=== PATIENT | female | born 1970 | race Caucasian/White ===

== ENCOUNTER 2019-04-08 07:30 | Inpatient (IN) | payer OTHER ==
[2019-04-07 16:07] VITALS: BMI 33.3
[2019-04-08] VITALS (22 sets, daily range): BP systolic 86–119; BP diastolic 48–68; PULSE 58–95; RESP 10–29; Ht 157.5 cm; Wt 79.0 kg
[~2019-04-08] VITALS: Ht 157.5 cm; Wt 79.0 kg
[~2019-04-08 07:30] MED LIST: AMOX500C2 PO; DULO60CA6 PO; GABA300C16 PO
[2019-04-08] MEDS ORDERED: CEFAZOLIN 2 GM/50 ML (PMX) 50 ML IVPB ONE (12:00)
[2019-04-08] MEDS ORDERED: SOD CHLORIDE 0.9% 1,000 ML IV SCH (12:00)
[2019-04-08] MEDS ORDERED: ROPIVACAINE 0.5 % 30 ML VIAL ONE (13:02)
--- NOTE | 2019-04-08 13:19 | PREAC ---
Date/Time of Note Date/Time of Note DATE: 04/08/19 TIME: : Anesthesia Eval and Record Evaluation Time Pre-Procedure Interview DATE: 04/08/19 TIME: : Age 48 Sex female NPO: 8 hrs Preoperative diagnosis incarcerated incisional hernia Planned procedure open component separation with mesh Past Medical History Past Medical History: Includes GI: Obesity (bmi 31.9) Psych: Depression Surgery & Anesthesia Issues No known issue Meds Anticoagulation: No Beta Rosemarie within 24 hr: No Reason Beta Rosemarie not given: Pt. not on B-Rosemarie Reported Medications Amoxicillin* (Amoxicillin*) 500 Mg Cap, 500 MG PO TID, #20 CAP 04/08/19 Gabapentin* (Gabapentin*) 300 Mg Capsule, 600 MG PO QHS, #180 CAP 04/08/19 Gabapentin* (Gabapentin*) 300 Mg Capsule, 300 MG PO AT 1PM, #90 CAP 04/08/19 Gabapentin* (Gabapentin*) 300 Mg Capsule, 600 MG PO QAM, #60 CAP 04/08/19 Duloxetine Hcl* (Cymbalta*) 60 Mg Capsule.dr, 60 MG PO DAILY, CAP 04/08/19 Current Medications Sodium Chloride 1,000 ml @ 75 mls/hr [id number] IV ; Start 04/08/19 at 12:00; Stop 04/09/19 at 01:19 Meds reviewed: Yes Allergies Coded Allergies: No Known Drug Allergy (Verified Allergy, Unknown, 04/08/19) Allergies Reviewed: Yes Labs/Studies Labs Reviewed: Reviewed by anesthesiologist Result Diagram: 04/08/19 1150 04/08/19 1150 Laboratory Tests 04/08/19 11:50 test: Negative Pre-procedure Exam Airway: Adequate mouth opening, Adequate thyromental dist Mallampati: Mallampati II Teeth: Normal Lung: Normal Heart: Normal ASA Physical Status ASA physical status: 2 Emergency: None Planned Anesthetic General/MAC: ETT Nerve block: TAP (bilateral) Planned Pain Management Single shot nerve block, Parenteral pain med, Local by surgeon Pre-operative Attestations Prior to commencing anesthesia and surgery, the patient was re-evaluated, there was verification of: *The patient's identity *The results of appropriate recent lab work and preoperative vital signs *The above evaluation not changing prior to induction *Anesthetic plan, risk benefits, alternative and complications discussed with patient/family; questions answered; patient/family understands, accepts and wishes to proceed. WILMA GUEVARA Apr 08, 2019 13:19
[2019-04-08] MEDS ORDERED: MIDAZOLAM 1 MG/ML 2 ML INJ ONE (13:22)
[2019-04-08] MEDS ORDERED: PROPOFOL 20 ML ONE (13:22)
[2019-04-08] MEDS ORDERED: CEFAZOLIN 1 GM INJ ONE (13:22)
[2019-04-08] MEDS ORDERED: ONDANSETRON 4 MG INJ ONE ×2 (13:23→15:18)
[2019-04-08] MEDS ORDERED: METOCLOPRAMIDE 10 MG INJ ONE (13:23)
[2019-04-08] MEDS ORDERED: HYDROmorphONE 2 MG/ML SYG ONE (13:46)
[2019-04-08] MEDS ORDERED: POLYMYXIN/BACITRACIN 1L IRRIG IRR ONE ×2 (13:49→15:00)
[2019-04-08] MEDS ORDERED: ROCURONIUM 50 MG INJ ONE ×2 (14:04→14:11)
[2019-04-08] MEDS ORDERED: EPHEDrine 25 MG/5 ML SYG ONE (14:04)
[2019-04-08] MEDS ORDERED: BUPIVACAINE 0.5% (SDV) 30 ML INJ ONE (14:56)
[2019-04-08] MEDS ORDERED: KETOROLAC 30 MG INJ ONE (14:57)
[2019-04-08] MEDS ORDERED: CEFAZOLIN 2 GM/50 ML (PMX) 50 ML IVPB SCH (15:00)
--- NOTE | 2019-04-08 15:09 | OPR ---
Date/Time of Note Date/Time of Note DATE: 04/08/19 TIME: 15:00 Operative Report Procedure Date: Apr 08, 2019 Preoperative Diagnosis incarcerated incisional hernia x 2 Postoperative Diagnosis same Operation/Procedure Performed 1. right rectus musculocutaneous flap cpt code 75132 2. left rectus musculocutaneous flap cpt code 63022 3. open incarcerated midepigastric incisional hernia repair 4. open incarcerated umbilical hernia repair 5. implantation of polypropylene 15 x 15 cm mesh cpt code 51751 6. open lysis of adhesions 7. localized adjacent tissue transfer with the use of skin flaps 84 sq cm defect of abdomen Surgeon see signature line [employer] Jagdish Ibarra Anesthesia Type: general Estimated Blood Loss: 50 - 100 ml's Transfusion none Specimen none Grafts/Implants none Complications none Pt Condition Post Procedure: stable Indications This is a 48-year-old female with a history of cholecystitis with gallbladder sepsis. She had a midline laparotomy. This resulted in 2 incarcerated incisional hernias. She is here for component separation with mesh. Risks alternatives benefits and personal were discussed the patient. Patient expressed understanding and consents to the operation. Procedure Description Patient is taken to the OR and prepped and draped in usual sterile fashion. Surgical time was performed. IV antibiotics given. Generous midline incision was made with a 10 blade. Excision of the cicatrix was performed. Dissection with cautery skin onto the fascia. The fascia was opened up. This incision extended superiorly and inferiorly. Upon going superiorly incarcerated incisional hernia was identified. Lysis of adhesions was performed and the hernia contents were manually reduced. Further extension inferiorly showed a umbilical incarcerated hernia. This was also manually reduced. Further lysis of adhesions was performed to allow mobilization of the anterior abdominal wall away from the bowel contents in the omentum as there were many adhesions. The left rectus muscular cutaneous flap was developed by first making a small incision in the posterior rectus sheath. The anterior rectus sheath and posterior rectus sheath was divided by entering the retrorectus potential space. This incision was extended superiorly and inferiorly. Good hemostasis was established. The right rectus muscular cutaneous flap was then developed in a similar fashion by entering the retrorectus space with cautery. This incision was extended superiorly and inferiorly dividing the anterior rectus sheath and entering the retrorectus space. The posterior rectus sheath was closed in a primary fashion with #1 running looped PDS from superior inferior and inferior superior thus closing the mid epigastric and umbilical hernias. 15 x 15 cm polypropylene mesh was then secured in place with interrupted #1 Prolene by fixing it to the anterior rectus sheath in the retrorectus space. Good hemostasis established. The anterior rectus sheath was then closed primarily using #1 loop PDS from superior inferior and inferior superior and tied in the m iddle. Due to the large tissue defect localized adjacent to his transfer with use of skin flaps was performed. Closure was performed with interrupted 3-0 Vicryl and skin gerardo. A tap block was provided the anesthesiologist at the beginning of the case. Subcutaneous therapeutic local anesthesia was also injected throughout the incision site. Dry dressings were applied. Jose Alfredo CHILDRESS Apr 08, 2019 15:09
[2019-04-08] MEDS ORDERED: FENTAnyl 50 MCG/ML VIAL ONE (15:18)
[2019-04-08] MEDS ORDERED: MEPERIDINE 25 MG INJ ONE (15:18)
[2019-04-08] MEDS: FENTAnyl 50 MCG/ML VIAL IV PRN ×2 (15:26→15:57)
[2019-04-08] MEDS ORDERED: FENTAnyl 50 MCG/ML VIAL IV PRN ×2 (15:30)
[2019-04-08] MEDS ORDERED: DIPHENHYDRAMINE 50 MG INJ IV PRN (15:30)
[2019-04-08] MEDS ORDERED: ONDANSETRON 4 MG INJ IV PRN ×2 (15:30→17:00)
[2019-04-08] MEDS ORDERED: MEPERIDINE 25 MG INJ IV PRN (15:30)
[2019-04-08] MEDS ORDERED: HYDROmorphONE 1 MG/5 ML IV SYRINGE IV PRN ×2 (15:30)
[2019-04-08] MEDS ORDERED: EPHEDrine 25 MG/5 ML SYG IV PRN (15:30)
[2019-04-08] MEDS: HYDROmorphONE 1 MG/5 ML IV SYRINGE IV PRN ×2 (15:42→15:47)
--- NOTE | 2019-04-08 16:30 | HP ---
Date/Time of Note Date/Time of Note DATE: 04/08/19 TIME: 16:25 Assessment/Plan VTE Prophylaxis Risk score (from Nsg)>0 risk: 3 SCD applied (from Nsg): Yes Pharmacological prophylaxis: other Lines/Catheters IV Catheter Type (from Nrsg): Peripheral IV Central line still needed: Yes Assessment/Plan Assessment/Plan -Incarcerated incisional hernia x 2, status post incarcerated mid epigastric and umbilical hernias repair by Dr. Cordon. Continue IV fluids and postoperative antibiotics. Continue Sidney and morphine as needed for pain and Zofran for nausea. Advance diet per surgery. -History of fibromyalgia. Continue gabapentin. Further recommendations based on clinical course. Plan of care discussed with Dr. White. Result Diagram: 04/08/19 1522 04/08/19 1522 Results 24hrs Laboratory Tests Test 04/08/19 11:50 04/08/19 15:22 White Blood Count 7.7 10.9 #H Red Blood Count 3.84 L 3.82 L Hemoglobin 12.5 12.4 Hematocrit 36.9 L 37.9 Mean Corpuscular Volume 96.1 99.2 Mean Corpuscular Hemoglobin 32.6 32.5 Mean Corpuscular Hemoglobin Concent 33.9 32.7 Red Cell Distribution Width 14.0 14.0 Platelet Count 273 269 Mean Platelet Volume 9.1 9.2 Immature Granulocytes % 0.300 0.300 Neutrophils % 58.3 63.0 Lymphocytes % 34.9 30.6 Monocytes % 5.2 5.1 Eosinophils % 1.0 0.8 Basophils % 0.3 0.2 Nucleated Red Blood Cells % 0.0 0.0 Immature Granulocytes # 0.020 0.030 Neutrophils # 4.5 6.9 Lymphocytes # 2.7 3.3 H Monocytes # 0.4 0.6 Eosinophils # 0.1 0.1 Basophils # 0.0 0.0 Nucleated Red Blood Cells # 0.0 0.0 Prothrombin Time 12.5 Prothrombin Time Ratio 1.0 INR International Normalized Ratio 0.92 Activated Partial Thromboplast Time 27.2 Sodium Level 140 142 Potassium Level 4.0 3.8 Chloride Level 107 110 Carbon Dioxide Level 26 24 Anion Gap 7 8 Blood Urea Nitrogen 13 12 Creatinine 0.61 0.60 Est Glomerular Filtrat Rate mL/min > 60 > 60 Glucose Level 101 114 Calcium Level 9.2 8.3 L Total Bilirubin 1.2 0.8 Direct Bilirubin 0.00 0.00 Indirect Bilirubin 1.2 H 0.8 Aspartate Amino Transf (AST/SGOT) 25 24 Alanine Aminotransferase (ALT/SGPT) 27 26 Alkaline Phosphatase 55 53 Total Protein 8.0 7.4 Albumin 4.0 3.6 Globulin 4.00 H 3.80 H Albumin/Globulin Ratio 1.00 0.94 HPI/ROS Admit Date/Time Admit Date/Time Apr 08, 2019 at 10:07 Hx of Present Illness Patient is 48-year-old female who underwent open cholecystectomy and appendectomy in 2017. Patient developed incisional hernias and was seen by Dr. Cordon in general surgery consultation. Patient was brought to the hospital and underwent component separation with mesh performed incarcerated mid epigastric and umbilical hernias. Postoperatively patient experiencing significant pain and patient will be admitted for further evaluation and management to medical surgical floor. ROS 12 point review of system is negative except what mentioned in HPI PMH/Family/Social Past Medical History Medical History: other (Fibromyalgia) Medications Current Medications Sodium Chloride 1,000 ml @ 75 mls/hr [id number] IV Last administered on 04/08/19at 15:29; Admin Dose 75 MLS/HR; Start 04/08/19 at 12:00; Stop 04/09/19 at 01:19 Cefazolin Sodium/ Dextrose 50 ml @ 100 mls/hr Q8H IVPB ; Start 04/08/19 at 15:00; Stop 04/09/19 at 14:59 Lactated Ringer's 1,000 ml @ 100 mls/hr Q10H IV ; Start 04/08/19 at 14:59 Hydromorphone HCl (Dilaudid) 0.2 mg PACU PRN IV MILD PAIN 1-3 Last administered on 04/08/19at 16:14; Admin Dose 0.2 MG; Start 04/08/19 at 15:30; Stop 04/08/19 at 20:00 Hydromorphone HCl (Dilaudid) 0.4 mg PACU PRN IV MOD PAIN 4-6 Last administered on 04/08/19at 15:47; Admin Dose 0.4 MG; Start 04/08/19 at 15:30; Stop 04/08/19 at 20:00 Hydromorphone HCl (Dilaudid) 0.6 mg PACU PRN IV SEVERE PAIN 7-10; Start 04/08/19 at 15:30; Stop 04/08/19 at 20:00 Fentanyl (Sublimaze) 25 mcg PACU ORDER PRN IV MILD PAIN 1-3; Start 04/08/19 at 1 5:30; Stop 04/08/19 at 20:00 Fentanyl (Sublimaze) 50 mcg PACU ORDER PRN IV MOD PAIN 4-6 Last administered on 04/08/19at 16:13; Admin Dose 50 MCG; Start 04/08/19 at 15:30; Stop 04/08/19 at 20:00 Fentanyl (Sublimaze) 75 mcg PACU ORDER PRN IV SEVERE PAIN 7-10 Last administered on 04/08/19at 15:57; Admin Dose 75 MCG; Start 04/08/19 at 15:30; Stop 04/08/19 at 20:00 Ondansetron HCl (Zofran Inj) 4 mg PACU ORDER PRN IV NAUSEA/VOMITING Last administered on 04/08/19at 15:26; Admin Dose 4 MG; Start 04/08/19 at 15:30; Stop 04/08/19 at 20:00 Ephedrine Sulfate 5 mg PACU ORDER PRN IV BLOOD PRESSURE SUPPORT; Start 04/08/19 at 15:30; Stop 04/08/19 at 20:00 Meperidine HCl (Demerol) 25 mg PACU ORDER PRN IV .RIGORS Last administered on 04/08/19at 15:26; Admin Dose 25 MG; Start 04/08/19 at 15:30; Stop 04/08/19 at 20:00 Diphenhydramine HCl (Benadryl) 25 mg PACU ORDER PRN IV .PRURITUS; Start 04/08/19 at 15:30; Stop 04/08/19 at 20:00 Coded Allergies: No Known Drug Allergy (Verified Allergy, Unknown, 04/21/19) Past Surgical History Past Surgical Hx: appendectomy, other (Open cholecystectomy) Family History Significant Family History: no pertinent family hx Social History Alcohol Use: none Smoking Status: Former smoker Drug Use: none Exam/Review of Systems Vital Signs Vitals Vital Signs Date Temp Pulse Resp B/P (MAP) Pulse Ox O2 O2 Flow FiO2 Time Delivery Rate 04/08/19 68 16 107/57 96 Room Air 15:38 (74) 04/08/19 8.0 15:33 04/08/19 98.9 15:13 Exam Constitutional: alert, oriented Head: normocephalic Neck: supple Respiratory: clear to auscultation Cardiovascular: nl pulses Gastrointestinal: soft, other (Status post surgery) Musculoskeletal: nl extremities to inspection Extremities: normal pulses Neurological: nl mental status Skin: nl LAUREL Velasquez Apr 08, 2019 16:30
[2019-04-08] MEDS ORDERED: DOCUSATE SODIUM 100 MG CAP PO SCH (17:00)
[2019-04-08] MEDS ORDERED: morphine 2 MG INJ IV PRN (17:00)
[2019-04-08] MEDS ORDERED: ACETAMINOPHEN 325 MG TAB PO PRN (17:00)
[2019-04-08] MEDS: LACTATED RINGER'S 1,000 ML IV SCH (17:22)
[2019-04-08] MEDS: HYDROCODONE/APAP (5/325) TAB PO PRN (18:20)
[2019-04-08] MEDS: GABAPENTIN 300 MG CAP PO SCH (20:57)
[2019-04-08] MEDS: DOCUSATE SODIUM 100 MG CAP PO SCH (20:58)
[2019-04-08] MEDS: morphine 4 MG/ML VIAL IV PRN (21:03)
[2019-04-08] MEDS: DULOXETINE 30 MG CAP DR PO SCH (21:06)
[2019-04-08] MEDS: CEFAZOLIN 2 GM/50 ML (PMX) 50 ML IVPB SCH (21:12)
[2019-04-09] MEDS: morphine 4 MG/ML VIAL IV PRN ×3 (00:19→06:32)
[2019-04-09] MEDS: LACTATED RINGER'S 1,000 ML IV SCH ×3 (00:59→17:26)
[2019-04-09] MEDS: HYDROCODONE/APAP (5/325) TAB PO PRN ×2 (01:11→07:35)
[2019-04-09 01:17] VITALS: BP 94/51; PULSE 80; RESP 16
[2019-04-09 02:00] VITALS: BP 105/55; PULSE 80
[2019-04-09] MEDS: CEFAZOLIN 2 GM/50 ML (PMX) 50 ML IVPB SCH ×2 (04:31→13:09)
[2019-04-09 07:28] VITALS: BP 119/64; PULSE 95; RESP 19
--- NOTE | 2019-04-09 08:29 | PAC ---
Date/Time of Note Date/Time of Note DATE: 04/09/19 TIME: 08:28 Post-Anesthesia Notes Post-Anesthesia Note Last documented vital signs Vital Signs Date Temp Pulse Resp B/P (MAP) Pulse Ox O2 O2 Flow FiO2 Time Delivery Rate 04/09/19 98.4 95 19 119/64 92 Room Air 07:28 (82) 04/08/19 2.0 18:00 Activity: WNL Respiratory function: WNL Cardiovascular function: WNL Mental status: Baseline Pain reasonably controlled: Yes Hydration appropriate: Yes Nausea/Vomiting absent: No LOLITA SABILLON MD Apr 09, 2019 08:29
[2019-04-09] MEDS ORDERED: DULOXETINE 30 MG CAP DR PO SCH (09:00)
[2019-04-09] MEDS: KETOROLAC 30 MG INJ IV PRN ×2 (09:53→15:31)
[2019-04-09] MEDS: GABAPENTIN 300 MG CAP PO SCH ×3 (09:54→20:19)
[2019-04-09] MEDS: DOCUSATE SODIUM 100 MG CAP PO SCH ×2 (09:55→20:19)
[2019-04-09 10:32] VITALS: BP 109/57; PULSE 92; RESP 18
--- NOTE | 2019-04-09 12:12 | PN ---
Date/Time of Note Date/Time of Note DATE: 04/09/19 TIME: 12:08 Assessment/Plan VTE Prophylaxis Risk score (from Ns)>0 risk: 2 SCD applied (from [facility]): Yes SCD contraindicated: other Pharmacological prophylaxis: other Pharm contraindication: other Lines/Catheters IV Catheter Type (from Nrsg): Peripheral IV Urinary Cath still in place: No Assessment/Plan Assessment/Plan -Incarcerated incisional hernia x 2, status post incarcerated mid epigastric and umbilical hernias repair by Dr. Cordon. Continue IV fluids and postoperative antibiotics. Continue Remer and morphine as needed for pain and Zofran for nausea. Advance diet per surgery. -History of fibromyalgia. Continue gabapentin. - Anemia- Hgb 10.9. stable ; cont to monitor CBC Further recommendations based on clinical course. Plan of care discussed with Dr. White. Result Diagram: 04/09/198 04/09/19 0428 Results 24hrs Laboratory Tests Test 04/08/19 15:22 04/09/19 04:28 White Blood Count 10.9 #H 8.1 # Red Blood Count 3.82 L 3.41 L Hemoglobin 12.4 10.9 L Hematocrit 37.9 33.9 L Mean Corpuscular Volume 99.2 99.4 Mean Corpuscular Hemoglobin 32.5 32.0 Mean Corpuscular Hemoglobin Concent 32.7 32.2 Red Cell Distribution Width 14.0 14.2 Platelet Count 269 272 Mean Platelet Volume 9.2 9.6 Immature Granulocytes % 0.300 0.200 Neutrophils % 63.0 61.4 Lymphocytes % 30.6 30.5 Monocytes % 5.1 6.9 Eosinophils % 0.8 0.9 Basophils % 0.2 0.1 Nucleated Red Blood Cells % 0.0 0.0 Immature Granulocytes # 0.030 0.020 Neutrophils # 6.9 5.0 Lymphocytes # 3.3 H 2.5 Monocytes # 0.6 0.6 Eosinophils # 0.1 0.1 Basophils # 0.0 0.0 Nucleated Red Blood Cells # 0.0 0.0 Sodium Level 142 140 Potassium Level 3.8 4.0 Chloride Level 110 106 Carbon Dioxide Level 24 27 Anion Gap 8 7 Blood Urea Nitrogen 12 12 Creatinine 0.60 0.61 Est Glomerular Filtrat Rate mL/min > 60 > 60 Glucose Level 114 106 Calcium Level 8.3 L 8.2 L Total Bilirubin 0.8 1.4 H Direct Bilirubin 0.00 0.00 Indirect Bilirubin 0.8 1.4 H Aspartate Amino Transf (AST/SGOT) 24 28 Alanine Aminotransferase (ALT/SGPT) 26 27 Alkaline Phosphatase 53 45 Total Protein 7.4 6.8 Albumin 3.6 3.4 Globulin 3.80 H 3.40 H Albumin/Globulin Ratio 0.94 1.00 Subjective 24 Hr Interval Summary Free Text/Dictation c/o abdominal pain; staff called Dr White- patient got pain medicine; resting parminder; feels better will cont to monitor Constitutional: requiring IVF Eyes: no complaints ENT: no complaints Respiratory: no complaints Cardiovascular: no complaints Gastrointestinal: pain Genitourinary: no complaints Musculoskeletal: no complaints Skin: no complaints Neurologic: no complaints Endocrine: no complaints Psychological: nl mood/affect Immunologic: no complaints Exam/Review of Systems Exam Vitals Vital Signs Date Temp Pulse Resp B/P (MAP) Pulse Ox O2 O2 Flow FiO2 Time Delivery Rate 04/09/19 99.1 92 18 109/57 93 Room Air 10:32 (74) 04/08/19 2.0 18:00 Intake and Output 04/08/19 04/08/19 04/09/19 1515:00 23:00 07:00 IntakeIntake Total 2730 ml 1890 ml OutputOutput Total 50 ml 251 ml BalanceBalance 2680 ml 1639 ml Constitutional: alert, well developed Psych: nl mood/affect Eyes: nl lids, nl sclera ENMT: nl external ears & nose Neck: non-tender Respiratory: clear to auscultation Cardiovascular: nl pulses, other (s1s2) Gastrointestinal: soft, non-tender, other (surgical abdomen-) Musculoskeletal: nl extremities to inspection Extremities: normal pulses Neurological: nl speech, other (alert/ responsive) Lymph: nontender Results Results 24hrs Laboratory Tests Test 04/08/19 15:22 04/09/19 04:28 White Blood Count 10.9 #H 8.1 # Red Blood Count 3.82 L 3.41 L Hemoglobin 12.4 10.9 L Hematocrit 37.9 33.9 L Mean Corpuscular Volume 99.2 99.4 Mean Corpuscular Hemoglobin 32.5 32.0 Mean Corpuscular Hemoglobin Concent 32.7 32.2 Red Cell Distribution Width 14.0 14.2 Platelet Count 269 272 Mean Platelet Volume 9.2 9.6 Immature Granulocytes % 0.300 0.200 Neutrophils % 63.0 61.4 Lymphocytes % 30.6 30.5 Monocytes % 5.1 6.9 Eosinophils % 0.8 0.9 Basophils % 0.2 0.1 Nucleated Red Blood Cells % 0.0 0.0 Immature Granulocytes # 0.030 0.020 Neutrophils # 6.9 5.0 Lymphocytes # 3.3 H 2.5 Monocytes # 0.6 0.6 Eosinophils # 0.1 0.1 Basophils # 0.0 0.0 Nucleated Red Blood Cells # 0.0 0.0 Sodium Level 142 140 Potassium Level 3.8 4.0 Chloride Level 110 106 Carbon Dioxide Level 24 27 Anion Gap 8 7 Blood Urea Nitrogen 12 12 Creatinine 0.60 0.61 Est Glomerular Filtrat Rate mL/min > 60 > 60 Glucose Level 114 106 Calcium Level 8.3 L 8.2 L Total Bilirubin 0.8 1.4 H Direct Bilirubin 0.00 0.00 Indirect Bilirubin 0.8 1.4 H Aspartate Amino Transf (AST/SGOT) 24 28 Alanine Aminotransferase (ALT/SGPT) 26 27 Alkaline Phosphatase 53 45 Total Protein 7.4 6.8 Albumin 3.6 3.4 Globulin 3.80 H 3.40 H Albumin/Globulin Ratio 0.94 1.00 Medications Medication Current Medications Lactated Ringer's 1,000 ml @ 100 mls/hr Q10H IV Last administered on 04/09/19at 03:03; Admin Dose 100 MLS/HR; Start 04/08/19 at 14:59 Gabapentin (Neurontin) 300 mg DAILY@1300 PO ; Start 04/09/19 at 13:00 Gabapentin (Neurontin) 600 mg QAM PO Last administered on 04/09/19at 09:54; Admin Dose 600 MG; Start 04/09/19 at 09:00 Gabapentin (Neurontin) 600 mg QHS PO Last administered on 04/08/19at 20:57; Adm in Dose 600 MG; Start 04/08/19 at 21:00 Acetaminophen (Tylenol Tab) 650 mg Q6H PRN PO .PAIN 1-3 OR TEMP Last administered on 04/09/19at 03:02; Admin Dose 650 MG; Start 04/08/19 at 17:00 Acetaminophen/ Hydrocodone Bitart ([place] (5/325)) 1 tab Q6H PRN PO .MOD PAIN 4- 6 Last administered on 04/09/19 07:35; Admin Dose 1 TAB; Start 04/08/19 at 17:00 Cefazolin Sodium/ Dextrose 50 ml @ 100 mls/hr Q8H IVPB Last administered on 04/09/19 04:31; Admin Dose 100 MLS/HR; Start 04/08/19 at 21:00; Stop 04/09/19 at 13:29 Ondansetron HCl (Zofran Inj) 4 mg Q4H PRN IV NAUSEA AND/OR VOMITING Last administered on 04/09/19 09:24; Admin Dose 4 MG; Start 04/08/19 at 17:00 Docusate Sodium (Colace) 100 mg Q12H PO Last administered on 04/09/19 09:55; Admin Dose 100 MG; Start 04/08/19 at 21:00 Duloxetine HCl (Cymbalta) 60 mg HS PO Last administered on 04/08/19 21:06; Admin Dose 60 MG; Start 04/08/19 at 21:00 Morphine Sulfate (morphine) 4 mg Q3H PRN IV SEVERE PAIN LEVEL 7-10 Last administered on 04/09/19 06:32; Admin Dose 4 MG; Start 04/08/19 at 20:30 Ketorolac Tromethamine (Toradol) 30 mg Q6H PRN IV PAIN LEVEL 1-3 OR MIGRAINE Last administered on 04/09/19 09:53; Admin Dose 30 MG; Start 04/09/19 at 09:30; Stop 04/12/19 at 09:29 RAMON TREJO Apr 09, 2019 12:12
--- NOTE | 2019-04-09 12:28 | PN ---
Date/Time of Note Date/Time of Note DATE: 04/09/19 TIME: 12:27 Assessment/Plan VTE Prophylaxis Risk score (from Ns)>0 risk: 2 SCD applied (from Ns): Yes Pharmacological prophylaxis: other Lines/Catheters IV Catheter Type (from Nrsg): Peripheral IV Urinary Cath still in place: No Assessment/Plan Assessment/Plan s/p open component separation with mesh change pain meds to dilaudid and possible dc tomorrow Result Diagram: 04/09/198 04/09/19427 Results 24hrs Laboratory Tests Test 04/08/19 15:22 04/09/19 04:28 White Blood Count 10.9 #H 8.1 # Red Blood Count 3.82 L 3.41 L Hemoglobin 12.4 10.9 L Hematocrit 37.9 33.9 L Mean Corpuscular Volume 99.2 99.4 Mean Corpuscular Hemoglobin 32.5 32.0 Mean Corpuscular Hemoglobin Concent 32.7 32.2 Red Cell Distribution Width 14.0 14.2 Platelet Count 269 272 Mean Platelet Volume 9.2 9.6 Immature Granulocytes % 0.300 0.200 Neutrophils % 63.0 61.4 Lymphocytes % 30.6 30.5 Monocytes % 5.1 6.9 Eosinophils % 0.8 0.9 Basophils % 0.2 0.1 Nucleated Red Blood Cells % 0.0 0.0 Immature Granulocytes # 0.030 0.020 Neutrophils # 6.9 5.0 Lymphocytes # 3.3 H 2.5 Monocytes # 0.6 0.6 Eosinophils # 0.1 0.1 Basophils # 0.0 0.0 Nucleated Red Blood Cells # 0.0 0.0 Sodium Level 142 140 Potassium Level 3.8 4.0 Chloride Level 110 106 Carbon Dioxide Level 24 27 Anion Gap 8 7 Blood Urea Nitrogen 12 12 Creatinine 0.60 0.61 Est Glomerular Filtrat Rate mL/min > 60 > 60 Glucose Level 114 106 Calcium Level 8.3 L 8.2 L Total Bilirubin 0.8 1.4 H Direct Bilirubin 0.00 0.00 Indirect Bilirubin 0.8 1.4 H Aspartate Amino Transf (AST/SGOT) 24 28 Alanine Aminotransferase (ALT/SGPT) 26 27 Alkaline Phosphatase 53 45 Total Protein 7.4 6.8 Albumin 3.6 3.4 Globulin 3.80 H 3.40 H Albumin/Globulin Ratio 0.94 1.00 Subjective 24 Hr Interval Summary Free Text/Dictation patient with significant pain and states morphine isn't controlling her pain Exam/Review of Systems Exam Vitals Vital Signs Date Temp Pulse Resp B/P (MAP) Pulse Ox O2 O2 Flow FiO2 Time Delivery Rate 04/09/19 99.1 92 18 109/57 93 Room Air 10:32 (74) 04/08/19 2.0 18:00 Intake and Output 04/08/19 04/08/19 04/09/19 1515:00 23:00 07:00 IntakeIntake Total 2730 ml 1890 ml OutputOutput Total 50 ml 251 ml BalanceBalance 2680 ml 1639 ml Exam c/d/i Results Results 24hrs Laboratory Tests Test 04/08/19 15:22 04/09/19 04:28 White Blood Count 10.9 #H 8.1 # Red Blood Count 3.82 L 3.41 L Hemoglobin 12.4 10.9 L Hematocrit 37.9 33.9 L Mean Corpuscular Volume 99.2 99.4 Mean Corpuscular Hemoglobin 32.5 32.0 Mean Corpuscular Hemoglobin Concent 32.7 32.2 Red Cell Distribution Width 14.0 14.2 Platelet Count 269 272 Mean Platelet Volume 9.2 9.6 Immature Granulocytes % 0.300 0.200 Neutrophils % 63.0 61.4 Lymphocytes % 30.6 30.5 Monocytes % 5.1 6.9 Eosinophils % 0.8 0.9 Basophils % 0.2 0.1 Nucleated Red Blood Cells % 0.0 0.0 Immature Granulocytes # 0.030 0.020 Neutrophils # 6.9 5.0 Lymphocytes # 3.3 H 2.5 Monocytes # 0.6 0.6 Eosinophils # 0.1 0.1 Basophils # 0.0 0.0 Nucleated Red Blood Cells # 0.0 0.0 Sodium Level 142 140 Potassium Level 3.8 4.0 Chloride Level 110 106 Carbon Dioxide Level 24 27 Anion Gap 8 7 Blood Urea Nitrogen 12 12 Creatinine 0.60 0.61 Est Glomerular Filtrat Rate mL/min > 60 > 60 Glucose Level 114 106 Calcium Level 8.3 L 8.2 L Total Bilirubin 0.8 1.4 H Direct Bilirubin 0.00 0.00 Indirect Bilirubin 0.8 1.4 H Aspartate Amino Transf (AST/SGOT) 24 28 Alanine Aminotransferase (ALT/SGPT) 26 27 Alkaline Phosphatase 53 45 Total Protein 7.4 6.8 Albumin 3.6 3.4 Globulin 3.80 H 3.40 H Albumin/Globulin Ratio 0.94 1.00 Medications Medication Current Medications Lactated Ringer's 1,000 ml @ 100 mls/hr Q10H IV Last administered on 04/09/19 03:03; Admin Dose 100 MLS/HR; Start 04/08/19 at 14:59 Gabapentin (Neurontin) 300 mg DAILY@1300 PO ; Start 04/09/19 at 13:00 Gabapentin (Neurontin) 600 mg QAM PO Last administered on 04/09/19 09:54; Admin Dose 600 MG; Start 04/09/19 at 09:00 Gabapentin (Neurontin) 600 mg QHS PO Last administered on 04/08/19 20:57; Admin Dose 600 MG; Start 04/08/19 at 21:00 Acetaminophen (Tylenol Tab) 650 mg Q6H PRN PO .PAIN 1-3 OR TEMP Last administered on 04/09/19 03:02; Admin Dose 650 MG; Start 04/08/19 at 17:00 Acetaminophen/ Hydrocodone Bitart ([place] (5/325)) 1 tab Q6H PRN PO .MOD PAIN 4- 6 Last administered on 04/09/19 07:35; Admin Dose 1 TAB; Start 04/08/19 at 17:00 Cefazolin Sodium/ Dextrose 50 ml @ 100 mls/hr Q8H IVPB Last administered on 04/09/19 04:31; Admin Dose 100 MLS/HR; Start 04/08/19 at 21:00; Stop 04/09/19 at 13:29 Ondansetron HCl (Zofran Inj) 4 mg Q4H PRN IV NAUSEA AND/OR VOMITING Last administered on 04/09/19 09:24; Admin Dose 4 MG; Start 04/08/19 at 17:00 Docusate Sodium (Colace) 100 mg Q12H PO Last administered on 04/09/19 09:55; Admin Dose 100 MG; Start 04/08/19 at 21:00 Duloxetine HCl (Cymbalta) 60 mg HS PO Last administered on 04/08/19 21:06; Admin Dose 60 MG; Start 04/08/19 at 21:00 Morphine Sulfate (morphine) 4 mg Q3H PRN IV SEVERE PAIN LEVEL 7-10 Last administered on 04/09/19at 06:32; Admin Dose 4 MG; Start 04/08/19 at 20:30 Ketorolac Tromethamine (Toradol) 30 mg Q6H PRN IV PAIN LEVEL 1-3 OR MIGRAINE Last administered on 04/09/19at 09:53; Admin Dose 30 MG; Start 04/09/19 at 09:30; Stop 04/12/19 at 09:29 Jose Alfredo CHILDRESS Apr 09, 2019 12:28
[2019-04-09] MEDS: HYDROmorphONE 0.5 MG/0.5 ML SYG IV PRN ×3 (13:10→21:12)
[2019-04-09 16:24] VITALS: BP 119/58; PULSE 81; RESP 19
[2019-04-09 19:40] VITALS: BP 118/60; PULSE 93; RESP 20
[2019-04-09] MEDS: DULOXETINE 30 MG CAP DR PO SCH (20:19)
[2019-04-10] MEDS: KETOROLAC 30 MG INJ IV PRN ×3 (01:15→16:52)
[2019-04-10 02:15] VITALS: BP 119/65; PULSE 96; RESP 18
[2019-04-10] MEDS: LACTATED RINGER'S 1,000 ML IV SCH ×3 (03:42→22:31)
[2019-04-10] MEDS: HYDROmorphONE 0.5 MG/0.5 ML SYG IV PRN ×5 (04:15→21:31)
[2019-04-10 07:23] VITALS: BP 120/75; PULSE 98; RESP 18
[2019-04-10] MEDS: GABAPENTIN 300 MG CAP PO SCH ×3 (08:29→21:13)
[2019-04-10] MEDS: DOCUSATE SODIUM 100 MG CAP PO SCH ×2 (08:29→21:13)
--- NOTE | 2019-04-10 12:16 | PN ---
Date/Time of Note Date/Time of Note DATE: 04/10/19 TIME: 12:16 Assessment/Plan VTE Prophylaxis Risk score (from Nsg)>0 risk: 5 SCD applied (from Nsg): Yes Pharmacological prophylaxis: LMWH Lines/Catheters IV Catheter Type (from Nrsg): Peripheral IV Urinary Cath still in place: No Assessment/Plan Hospital Course -Incarcerated incisional hernia x 2, status post incarcerated mid epigastric and umbilical hernias repair by Dr. Cordon. Continue IV fluids and postoperative antibiotics. Continue [place] and morphine as needed for pain and Zofran for nausea. Advance diet per surgery. -History of fibromyalgia. Continue gabapentin. - Anemia- Hgb 10.9. stable ; cont to monitor CBC Result Diagram: 04/09/1942704/09/19427 Subjective 24 Hr Interval Summary Free Text/Dictation Patient still having a fair amount of pain related to hernia repair surgery Exam/Review of Systems Exam Vitals Vital Signs Date Temp Pulse Resp B/P (MAP) Pulse Ox O2 O2 Flow FiO2 Time Delivery Rate 04/10/19 98.8 98 18 120/75 94 Room Air 07:23 (90) 04/08/19 2.0 18:00 Intake and Output 04/09/19 04/09/19 04/10/19 1515:00 23:00 07:00 IntakeIntake Total 500 ml 1300 ml 1610 ml OutputOutput Total 2 ml 1 ml BalanceBalance 498 ml 1299 ml 1610 ml Constitutional: well developed Head: normocephalic, atraumatic Neck: supple Respiratory: clear to auscultation Cardiovascular: regular rate and rhythm Gastrointestinal: soft, non-tender Extremities: normal pulses Medications Medication Current Medications Lactated Ringer's 1,000 ml @ 100 mls/hr Q10H IV Last administered on 04/10/19at 03:42; Admin Dose 100 MLS/HR; Start 04/08/19 at 14:59 Gabapentin (Neurontin) 300 mg DAILY@1300 PO Last administered on 04/09/19at 13:09; Admin Dose 300 MG; Start 04/09/19 at 13:00 Gabapentin (Neurontin) 600 mg QAM PO Last administered on 04/10/19at 08:29; Admin Dose 600 MG; Start 04/09/19 at 09:00 Gabapentin (Neurontin) 600 mg QHS PO Last administered on 04/09/19 20:19; Admin Dose 600 MG; Start 04/08/19 at 21:00 Acetaminophen (Tylenol Tab) 650 mg Q6H PRN PO .PAIN 1-3 OR TEMP Last administered on 04/09/19 03:02; Admin Dose 650 MG; Start 04/08/19 at 17:00 Acetaminophen/ Hydrocodone Bitart ([place] (5/325)) 1 tab Q6H PRN PO .MOD PAIN 4- 6 Last administered on 04/09/19 07:35; Admin Dose 1 TAB; Start 04/08/19 at 17:00 Ondansetron HCl (Zofran Inj) 4 mg Q4H PRN IV NAUSEA AND/OR VOMITING Last administered on 04/09/19 09:24; Admin Dose 4 MG; Start 04/08/19 at 17:00 Docusate Sodium (Colace) 100 mg Q12H PO Last administered on 04/10/19 08:29; Admin Dose 100 MG; Start 04/08/19 at 21:00 Duloxetine HCl (Cymbalta) 60 mg HS PO Last administered on 04/09/19 20:19; Admin Dose 60 MG; Start 04/08/19 at 21:00 Ketorolac Tromethamine (Toradol) 30 mg Q6H PRN IV PAIN LEVEL 1-3 OR MIGRAINE Last administered on 04/10/19 08:29; Admin Dose 30 MG; Start 04/09/19 at 09:30; Stop 04/12/19 at 09:29 Hydromorphone HCl (Dilaudid) 0.5 mg Q3H PRN IV SEVERE PAIN LEVEL 7-10 Last administered on 04/10/19 09:42; Admin Dose 0.5 MG; Start 04/09/19 at 12:30 LEYLA CANCINO Apr 10, 2019 12:16
[2019-04-10 15:48] VITALS: BP 122/67; PULSE 96; RESP 18
--- NOTE | 2019-04-10 15:57 | PN ---
DATE: 04/10/2019 Status post laparotomy, open component separation for the repair of the incarcerated ventral incision al hernia. SUBJECTIVE: The patient still is having a lot of pain, requiring Dilaudid and also Toradol. She can not take morphine anymore. I guess she has developed some REACTION TO MORPHINE. Has passed a little bit of gas. No bowel movement. Feels somewhat nauseous. OBJECTIVE: GENERAL: Alert, awake oriented. VITAL SIGNS: Temperature 99, heart rate 96, respiration 18, blood pressure 109/65, saturation 93% on room air. HEART: Regular. LUNGS: Decreased breathing sound at bases. ABDOMEN: Distended, protruded, was relatively soft. Dressing is intact. Bowel sound is 2+/4+. EXTREMITIES: Lower extremity, no calf tenderness. No pitting edema. LABORATORY DATA: There is no lab done today. ASSESSMENT: The patient is postop day #2 status post open repair of the incarcerated ventral incisio nal hernia with component separation. The patient is relatively stable, but still has some nausea an d requires a lot of pain medication for control of the pain. Bowel sounds present. PLAN: We will keep the patient at least 1 more night. If by tomorrow has a bowel movement and can e at better and the pain is under better control, we can discharge the patient tomorrow. Dictated By: RAGHU WILSON MD PS/NTS Conf#: [id number] DID#: [id number] CC: YOGESH CHILDRESS MD;*EndCC*
[2019-04-10 20:41] VITALS: BP 116/59; PULSE 92; RESP 18
[2019-04-10] MEDS: DULOXETINE 30 MG CAP DR PO SCH (21:13)
[2019-04-10] MEDS: HYDROCODONE/APAP (5/325) TAB PO PRN (22:28)
[2019-04-11 02:30] VITALS: BP_SYST 122; BP_SYST 124; BP_DIAS 68; PULSE 80; RESP 19
[2019-04-11] MEDS: HYDROCODONE/APAP (5/325) TAB PO PRN ×2 (05:20→11:39)
[2019-04-11] MEDS: KETOROLAC 30 MG INJ IV PRN (06:18)
[2019-04-11] MEDS: LACTATED RINGER'S 1,000 ML IV SCH (07:24)
[2019-04-11 07:42] VITALS: BP 118/66; PULSE 88; RESP 16
[2019-04-11] MEDS: GABAPENTIN 300 MG CAP PO SCH ×2 (09:00→12:02)
[2019-04-11] MEDS: HYDROmorphONE 0.5 MG/0.5 ML SYG IV PRN (09:00)
[2019-04-11] MEDS: DOCUSATE SODIUM 100 MG CAP PO SCH (09:00)
--- NOTE | 2019-04-11 12:14 | DS ---
Date/Time of Note Date/Time of Note DATE: 04/11/19 TIME: 12:13 Discharge Summary Admission/Discharge Info Admit Date/Time Apr 08, 2019 at 10:07 Discharge Date/Time 04/11/19 Discharge Diagnosis -Incarcerated incisional hernia x 2, status post incarcerated mid epigastric and umbilical hernias repair by Dr. Cordon. Continue IV fluids and postoperative antibiotics. Continue [place] and morphine as needed for pain and Zofran for nausea. Advance diet per surgery. -History of fibromyalgia. Continue gabapentin. - Anemia- Hgb 10.9. stable ; cont to monitor CBC Patient Condition: Fair Consults surgery Procedures repair of incarcerated incisional hernia Hx of Present Illness Patient comes in with incarcerated incisional hernia x2 causing abdominal pain. Hospital Course Patient comes in with incarcerated incisional hernia x2 causing abdominal pain. Patient underwent repair and tolerated the procedure. She was subsequently discharged when she was felt to be stable s/p procedure. -Incarcerated incisional hernia x 2, status post incarcerated mid epigastric and umbilical hernias repair by Dr. Cordon. Continue IV fluids and postoperative antibiotics. Continue [place] and morphine as needed for pain and Zofran for nausea. Advance diet per surgery. -History of fibromyalgia. Continue gabapentin. - Anemia- Hgb 10.9. stable ; cont to monitor CBC Home Meds Reported Medications Amoxicillin* (Amoxicillin*) 500 Mg Cap, 500 MG PO TID, #20 CAP 04/08/19 Gabapentin* (Gabapentin*) 300 Mg Capsule, 600 MG PO QHS, #180 CAP 04/08/19 Gabapentin* (Gabapentin*) 300 Mg Capsule, 300 MG PO AT 1PM, #90 CAP 04/08/19 Gabapentin* (Gabapentin*) 300 Mg Capsule, 600 MG PO QAM, #60 CAP 04/08/19 Duloxetine Hcl* (Cymbalta*) 60 Mg Capsule., 60 MG PO DAILY, CAP 04/08/19 Primary Care Provider Care Physician No Primary LEYLA CANCINO Apr 11, 2019 12:14
== END 2019-04-11 13:00 | disposition home or self-care (01) | DRG 337 ==
LOC: REC 10:07 → EDSTATUS 13:30 → MS1 16:50
PROVIDERS: ADMIT Surgery; ATTEND Internal Medicine
PROC: 0DNW0ZZ Release Peritoneum, Open Approach (ICD-10-PCS; 2019-04-08)
PROC: 0WUF0JZ Supplement Abdominal Wall with Synthetic Substitute, Open Approach (ICD-10-PCS; 2019-04-08)
PROC: 0KXL0ZZ Transfer Left Abdomen Muscle, Open Approach (ICD-10-PCS; 2019-04-08)
PROC: 0KXK0ZZ Transfer Right Abdomen Muscle, Open Approach (ICD-10-PCS; 2019-04-08)
PROC: 0WUF0JZ Supplement Abdominal Wall with Synthetic Substitute, Open Approach (ICD-10-PCS; principal; 2019-04-08 13:30)
DX: K43.0 Incisional hernia with obstruction, without gangrene (principal); D64.9 Anemia, unspecified; K66.0 Peritoneal adhesions (postprocedural) (postinfection); M79.7 Fibromyalgia; K42.0 Umbilical hernia with obstruction, without gangrene; Z87.891 Personal history of nicotine dependence
CPT/HCPCS: 80053; 85025; 85610; 85730; J0690; J1170; J1885; J2175; J2250; J2270; J2405; J2765; J2795; J3010; J7030; J7120

== ENCOUNTER 2019-04-21 16:03 | Emergency (ER) | payer OTHER ==
[~2019-04-21] VITALS: Ht 160 cm; Wt 81.6 kg
[2019-04-21 16:04] VITALS: Ht 160 cm; Wt 81.6 kg
[2019-04-21] MEDS ORDERED: KETOROLAC 30 MG INJ IV STA (16:34)
--- NOTE | 2019-04-21 18:30 | ERD ---
ER Documentation Chief Complaint Chief Complaint incision pain HPI The patient is a 48-year-old female, presenting to the ER because of incisional pain that began yesterday. She had ventral herniorrhaphy on April 08, [address] Childress. She denies fever, chills, neck pain, chest pain, dyspnea, vomiting, dysuria, diarrhea, constipation. She does not smoke drink, smokes socially Past medical history: Anemia, fibromyalgia, recently diagnosed non-Hodgkin's lymphoma awaiting further study and treatment, depression Past surgical history: Cholecystectomy ROS All systems reviewed and are negative except as per history of present illness. Medications Home Meds Reported Medications Gabapentin* (Gabapentin*) 300 Mg Capsule, 600 MG PO QHS, #180 CAP 04/08/19 Gabapentin* (Gabapentin*) 300 Mg Capsule, 300 MG PO AT 1PM, #90 CAP 04/08/19 Gabapentin* (Gabapentin*) 300 Mg Capsule, 600 MG PO QAM, #60 CAP 04/08/19 Duloxetine Hcl* (Cymbalta*) 60 Mg Capsule.dr, 60 MG PO DAILY, CAP 04/08/19 Discontinued Reported Medications Amoxicillin* (Amoxicillin*) 500 Mg Cap, 500 MG PO TID, #20 CAP 04/08/19 Allergies Allergies: Coded Allergies: No Known Drug Allergy (Verified Allergy, Unknown, 04/21/19) PMhx/Soc History of Surgery: Yes (CHOLECYSTECTOMY&APPENDECTOMY , HERNIA REPAIR ) Anesthesia Reaction: No Hx Neurological Disorder: No Hx Respiratory Disorders: No Hx Cardiac Disorders: No Hx Psychiatric Problems: No Hx Miscellaneous Medical Probl: Yes (FIBROMYALGIA) Hx Alcohol Use: Yes (ON OCC) Hx Substance Use: Yes ( H/O HEROINE USE ) Hx Tobacco Use: No Smoking Status: Never smoker Physical Exam Vitals Vital Signs Date Temp Pulse Resp B/P (MAP) Pulse Ox O2 O2 Flow FiO2 Time Delivery Rate 04/21/19 80 18 115/59 100 Room Air 17:55 (77) 04/21/19 98.5 93 16 118/67 99 16:04 (84) Physical Exam Const: No acute distress. Head: Atraumatic. Eyes: Normal Conjunctiva. ENT: Normal External Ears, Nose and Mouth. Neck: Full range of motion. No meningismus. Resp: Clear to auscultation bilaterally. Cardio: Regular rate and rhythm. Abd: Soft, non distended, normal bowel sounds, non tender. Mid abdomen incision is healing well, minimal tender proximally, no fluctuant Skin: No petechiae or rashes. Back: No midline or flank tenderness. Ext: No cyanosis, or edema. Neur: Awake and alert. No focal deficit Psych: Normal Mood and Affect. Result Diagram: 04/21/19 1647 04/21/19 1647 Results 24 hrs Laboratory Tests Test 04/21/19 16:46 04/21/19 16:47 04/21/19 16:48 Bedside Urine pH (LAB) 5.5 Bedside Urine Protein (LAB) Trace Bedside Urine Glucose (UA) Negative Bedside Urine Ketones (LAB) Negative Bedside Urine Blood 2+ Bedside Urine Nitrite (LAB) Negative Bedside Urine Leukocyte Esterase (L Trace White Blood Count 7.6 10^3/ul Red Blood Count 3.70 10^6/ul Hemoglobin 11.9 g/dl Hematocrit 35.4 % Mean Corpuscular Volume 95.7 fl Mean Corpuscular Hemoglobin 32.2 pg Mean Corpuscular Hemoglobin Concent 33.6 g/dl Red Cell Distribution Width 13.4 % Platelet Count 493 10^3/UL Mean Platelet Volume 8.6 fl Immature Granulocytes % 1.200 % Neutrophils % 53.0 % Lymphocytes % 36.6 % Monocytes % 6.4 % Eosinophils % 2.4 % Basophils % 0.4 % Nucleated Red Blood Cells % 0.0 /100WBC Immature Granulocytes # 0.090 10^3/ul Neutrophils # 4.1 10^3/ul Lymphocytes # 2.8 10^3/ul Monocytes # 0.5 10^3/ul Eosinophils # 0.2 10^3/ul Basophils # 0.0 10^3/ul Nucleated Red Blood Cells # 0.0 10^3/ul Sodium Level 138 mmol/L Potassium Level 4.1 mmol/L Chloride Level 103 mmol/L Carbon Dioxide Level 24 mmol/L Anion Gap 11 Blood Urea Nitrogen 19 mg/dl Creatinine 0.68 mg/dl Est Glomerular Filtrat Rate mL/min > 60 mL/min Glucose Level 123 mg/dl Calcium Level 9.5 mg/dl Total Bilirubin 0.4 mg/dl Direct Bilirubin 0.00 mg/dl Indirect Bilirubin 0.4 mg/dl Aspartate Amino Transf (AST/SGOT) 24 IU/L Alanine Aminotransferase (ALT/SGPT) 24 IU/L Alkaline Phosphatase 61 IU/L Total Protein 8.4 g/dl Albumin 4.2 g/dl Globulin 4.20 g/dl Albumin/Globulin Ratio 1.00 Lipase 69 U/L POC Beta HCG, Qualitative NEGATIVE Current Medications Medications Dose Sig/Tia Start Time Status Last (Trade) Ordered Route PRN Stop Time Admin Dose Reason Admin Ketorolac 30 mg ONCE STAT 04/21/19 DC 04/21/19 Tromethamine IV 16:34 04/21/19 16:52 (Toradol) 16:39 Procedures/[place] [id number] Radiology Main Line: [phone] DIAGNOSTIC IMAGING REPORT Patient: YONI PISANO : 1970 Age: 48 Sex: F MR #: [id number] DOS: 04/21/19 1634 Ordering MD: ABELINO BENJAMIN MD Location: E/R Room/Bed: PROCEDURE: US Abdomen (right upper quadrant). CLINICAL INDICATION: Right upper quadrant abdomen pain. TECHNIQUE: Multiple real-time longitudinal and transverse images of the right upper quadrant of the abdomen were acquired utilizing a curved array transducer. Images were reviewed on a high-resolution PACS workstation. COMPARISON: None FINDINGS: The liver is normal in size and increased in echogenicity. There is no focal hepatic lesion. Color Doppler and pulsed Doppler sonography demonstrate normal antegrade flow in the portal vein. The gallbladder is surgically removed. The bile ducts are normal with the common bile duct measuring 4.5 mm in diameter. The pancreas is obscured secondary to overlying bowel gas. There is a small pocket of free fluid with associated surrounding soft tissue thickening within the postsurgical region. The right kidney measures 8.5 cm. There is normal echogenicity of the right kidney. There is no perinephric fluid collection. No hydronephrosis, mass, or calculus is seen. IMPRESSION: Hepatic steatosis. Underlying hepatocellular disease cannot be excluded. Status post cholecystectomy. There is a small pocket of free fluid with associated surrounding soft tissue thickening within the postsurgical region. Follow up to exclude abscess, seroma, hematoma. RPTAT: QQ Physician Celine Date Time Electronically viewed and signed by Soledad King Physician on 04/21/2019 17:17 RD/ CC: ABELINO BENJAMIN MD [id number] MEDICAL MAKING DECISION: The patient is a 48-year-old female, presenting with acute postoperative pain, hematuria. The differential diagnoses considered include but are not limited to abscess, seroma, hematoma, cholelithiasis, cholecystitis, choledocholithiasis, cholangitis, pancreatitis, hepatitis, gastritis, peptic ulcer disease, gastric u lcer, appendicitis, cystitis, diverticulitis, partial small bowel obstruction. Departure Diagnosis: Primary Impression: Post-op pain Additional Impressions: Hematuria Anemia Condition: Good Patient Instructions: Hematuria, Post Op Wound Check, Pain Referrals: Jose Alfredo CHILDRESS Additional Instructions: Call Dr Childress TOMORROW for an appointment during the next 1-2 days.See the doctor sooner or return here if your condition worsens before your appointment time. ABELINO BENJAMIN MD Apr 21, 2019 18:30
[2019-04-21] MEDS ORDERED: HYDROCODONE/APAP (10/325) TAB PO ONE (19:00)
[2019-04-21 19:08] VITALS: BP 98/59; PULSE 85; RESP 16
== END 2019-04-21 19:08 | disposition home or self-care (01) ==
LOC: E/R 16:03
DX: G89.18 Other acute postprocedural pain (principal); R31.9 Hematuria, unspecified; D64.9 Anemia, unspecified; Z85.72 Personal history of non-Hodgkin lymphomas
CPT/HCPCS: 36415; 76705; 80053; 81003; 81025; 83690; 85025; 96374; J1885; Z7502; Z7610